=== PATIENT | female | born 1975 | race Caucasian/White ===

== ENCOUNTER 2018-06-13 06:06 | Inpatient (IN) | payer OTHER ==
[2018-06-13] VITALS (12 sets, daily range): BP systolic 96–130; BP diastolic 62–80
[~2018-06-13] VITALS: Ht 167.6 cm; Wt 83.9 kg
[2018-06-13] MEDS ORDERED: Zemuron 50mg/5ml Inj IV ONE (06:32)
[2018-06-13] MEDS ORDERED: EPINEPHrine 1mg/1ml Amp ONE (06:59)
[2018-06-13] MEDS ORDERED: Heparin 5000 units/ml inj ONE (06:59)
[2018-06-13] MEDS ORDERED: Labetalol 5mg/ml 20ml vial IV PRN (07:00)
[2018-06-13] MEDS ORDERED: Atropine Sulfate 0.4mg/ml inj IVP PRN (07:00)
[2018-06-13] MEDS ORDERED: Lidocaine 1% 10mg/ml/Epi 0.005mg/ml 30ml vial INJ ONE (07:00)
[2018-06-13] MEDS ORDERED: Meperidine 50mg/ml Inj(FOR RIGORS ONLY) IVP PRN (07:00)
[2018-06-13] MEDS ORDERED: Hydromorphone 0.5mg/0.5ml inj IVP PRN (07:00)
[2018-06-13] MEDS ORDERED: Midazolam 2mg/2ml Inj IVP PRN (07:00)
[2018-06-13] MEDS ORDERED: Acetaminophen (Non formulary) 100 ML IV ONE (07:00)
[2018-06-13] MEDS ORDERED: LORazepam Inj 2mg/ml 1ml IV PRN (07:00)
[2018-06-13] MEDS ORDERED: Thrombin 5000 units spray kit TOPIC ONE (07:00)
[2018-06-13] MEDS ORDERED: Ketorolac 30mg Inj IV PRN ×2 (07:00)
[2018-06-13] MEDS ORDERED: fentaNYL 100 mcg/2 mL IV PRN (07:00)
[2018-06-13] MEDS ORDERED: LR 1000ml 1,000 ML IVLG SCH (07:00)
[2018-06-13] MEDS ORDERED: HYDROcodone/Acetamin 7.5/325 tab ORAL PRN (07:00)
[2018-06-13] MEDS ORDERED: DiphenhydrAMINE 50mg/ml Inj IVP PRN (07:00)
[2018-06-13] MEDS ORDERED: Metoclopramide 10mg/2ml Inj IVP PRN (07:00)
[2018-06-13] MEDS ORDERED: Gelfoam Size TOPIC ONE (07:00)
[2018-06-13] MEDS ORDERED: Norco 5mg/325mg tab ORAL PRN (07:00)
[2018-06-13] MEDS ORDERED: oxyCODONE HCL/Acetaminophen 5/325mg ORAL PRN (07:00)
[2018-06-13] MEDS ORDERED: Thrombin 5000 units TOPIC ONE (07:00)
[2018-06-13] MEDS ORDERED: Ropivacaine 5mg/ml Vial 30ml INJ ONE (07:01)
[2018-06-13] MEDS ORDERED: Bacitracin 50000 Units Vial ONE (07:01)
[2018-06-13] MEDS ORDERED: Gelfoam Absorbable 1gm powder pkt TOPIC ONE (07:01)
[2018-06-13] MEDS ORDERED: Bupivacaine 0.5% Inj 30 ml vial INJ ONE ×2 (07:01→11:25)
[2018-06-13] MEDS ORDERED: Lidocaine 1% MPF 10mg/ml 5ml ONE (07:07)
[2018-06-13] MEDS ORDERED: Sodium Chloride 10ml vial INJ ONE (07:07)
[2018-06-13] MEDS ORDERED: Dexamethasone 4mg/ml vial ONE (07:07)
[2018-06-13] MEDS ORDERED: Lidocaine 1% Plain 30 ml INJ ONE (07:08)
--- NOTE | 2018-06-13 07:19 | Pre-Procedure Note/Attestation ---
Pre-Procedure Note/Attestation Complete Prior to Procedure Planned Procedure: bilateral Procedure Narrative: anterior and posterior decompressio fusion and instramentation Indications for Procedure Pre-Operative Diagnosis: herniater disk at L4/5 and L5/S1 with instibility Attestation I attest that I discussed the nature of the procedure; its benefits; risks and complications; and alternatives (and the risks and benefits of such alternatives ), prior to the procedure, with the patient (or the patient's legal factory representative). I attest that, if there was a reasonable possibility of needing a blood transfusion, the patient (or the patient's legal factory representative) was given the [facility] standardized written summary, pursuant to the Anup Adrianne Blood Safety Act ([place] Health and Safety Code # 1645, as amended). I attest that I re-evaluated the patient just prior to the surgery and that there has been no change in the patient's H&P, except as documented below: Madhu Mckeon MD Jun 13, 2018 07:19
--- NOTE | 2018-06-13 07:21 | Anethesia Preoperative Eval ---
Anesthesia Pre-op PMH/ROS General Date of Evaluation: Jun 13, 2018 Time of Evaluation: 07:41 Anesthesiologist: Rajan ASA Score: ASA 2 Mallampati Score Class I : Soft palate, uvula, fauces, pillars visible Class II: Soft palate, uvula, fauces visible Class III: Soft palate, base of uvula visible Class IV: Only hard plate visible Mallampati Classification: Class II Surgeon: Linda Diagnosis: Back Pain Surgical Procedure: ALIF/PLIF L4-5, L5-S1 Anesthesia History: none Social History: smoking Family History: no anesthesia problems Allergies: Coded Allergies: PENICILLINS (Verified Allergy, Severe, Rash, 06/13/18) Medications: see eMAR Past Medical History Cardiovascular: Reports: HTN Gastrointestinal/Genitourinary: Reports: GERD Neurologic/Psychiatric: Reports: depression/anxiety, other - Brain Aneurysm Other: obesity - BMI 32 PSxH Narrative: Brain Aneurysm Coiled Anesthesia Pre-op Phys. Exam Physician Exam Last Vital Signs Date Time Temp Pulse Resp B/P (MAP) Pulse Ox O2 Delivery O2 Flow Rate FiO2 06/13/18 06:55 Room Air 06/13/18 06:52 98.1 80 18 130/80 (97) 98 98.1 Constitutional: NAD Neurologic: CN 2-12 intact Cardiovascular: RRR Respiratory: CTA Gastrointestinal: S/NT/ND Airway Exam Mallampati Score: Class II MO: full ROM: limited Teeth: intact Anesthesia Pre-op A/P Labs Urine Test Test 06/13/18 06:15 Urine HCG, Qualitative Negative (NEGATIVE) Risk Assessment & Plan Assessment: ASA 2 Plan: GA, SED, GlideScope Go Status Change Before Surgery: No Pre-Antibiotics Dru Grams Ancef IV Given Within 1 Hr of Incision: Yes Time Given: 08:01 Jaden Tolentino MD Jun 13, 2018 07:21
[2018-06-13] MEDS ORDERED: BENAZEPRIL HCL10 MG ORAL (07:25)
--- NOTE | 2018-06-13 07:38 | Immediate Post-Op Evaluation ---
Immediate Post-Op Evalulation Immediate Post-Op Evalulation Procedure: ALIF/PLIF L4-5, L5-S1 Date of Evaluation: Jun 13, 2018 Time of Evaluation: 13:34 IV Fluids: 1300 LR Blood Products: 0 Estimated Blood Loss: 100 Urinary Output: 400 Blood Pressure Systolic: 107 Blood Pressure Diastolic: 62 Pulse Rate: 96 Respiratory Rate: 16 O2 Sat by Pulse Oximetry: 99 Temperature (Fahrenheit): 98.6 Pain Score (1-10): 3 Nausea: No Vomiting: No Complications 0 Patient Status: awake, reacts, patent, extubated, none Hydration Status: adequate Dru Grams Ancef IV Given Within 1 Hr of Incision: Yes Time Given: 08:01 Jaden Tolentino MD Jun 13, 2018 07:38
[2018-06-13] MEDS ORDERED: Sterile Water Irrig 1000ml IRRIG ONE (08:00)
[2018-06-13] MEDS ORDERED: Propofol 1,000mg/ 100ml btl IV ONE (08:00)
[2018-06-13] MEDS ORDERED: LR 1000ml ONE (08:00)
[2018-06-13] MEDS ORDERED: NS Irrig 1000ml ONE (08:00)
[2018-06-13] MEDS ORDERED: fentaNYL 100 mcg/2 mL IV ONE ×2 (08:51→12:57)
--- NOTE | 2018-06-13 15:29 | Diagnostic Imaging Report ---
Indication: Back pain, intraoperative images Technique: Intraoperative images Total fluoroscopy time 121 seconds. Total dose area product 1.28 mGym2 Number of images: 4 Comparison: none Findings: Intraoperative images demonstrate anterior fusion of hardware and disc spacers at what are presumably L4-5 and L5-S1, subsequent images demonstrating placement of posterior fusion hardware bridging L4 and S1. Impression: Intraoperative imaging, as described
[2018-06-13] MEDS: Vancomycin 1 GM in D5W 275 ML IVPB SCH (15:37)
[2018-06-13] MEDS: Clindamycin 600mg 50 ML IV SCH (17:16)
--- NOTE | 2018-06-13 19:15 | Operative Note - Dictated ---
DATE OF OPERATION: 06/13/2018 VASCULAR SURGEON: Jorje Zambrano M.D. SPINE SURGEON: Madhu Mckeon M.D. PREOPERATIVE DIAGNOSIS: Degenerative disc disease. POSTOPERATIVE DIAGNOSIS: Degenerative disc disease. PROCEDURE PERFORMED: 1. Anterior retroperitoneal exposure of L4-5 vertebral interspace. 2. Anterior retroperitoneal exposure of L5-S1 vertebral interspace. INDICATIONS: The patient is a very pleasant woman, who is seen in my office prior to surgery. She is scheduled for anterior lumbar spine surgery. She has no history of anterior spine surgery in the past. No history of deep venous thrombosis and no history of bleeding complications were described. She is made aware of the risks of surgery, the possibility of vascular injury, possible need for blood transfusion, and deep venous thrombosis were discussed with her prior to surgery. DESCRIPTION OF FINDINGS: A low vertical midline incision was used. A left retroperitoneal approach was used. There was no peritoneal or ureteral violation. There was no vascular injury. Exposure of L4-L5 was obtained above the iliac bifurcation and exposure of L5-S1 was obtained below the iliac bifurcation. Both were confirmed using fluoroscopy and on completion, the peritoneum and ureter were intact. The iliac vessels are intact. There are palpable femoral and pedal pulses. Pulse oximetry and neurologic monitoring are normal in the left foot throughout the case and blood loss was approximately 50 mL. DESCRIPTION OF PROCEDURE: The patient was taken to the operative room. General anesthesia was used. IV antibiotics were given. The patient's abdomen was prepped and draped. Appropriate time-out for procedure was taken. A low vertical midline incision was made infraumbilically. The anterior fascia was incised longitudinally midline. A plane was identified posterior to the left rectus abdominis and developed posterolaterally towards the patient's left. The retroperitoneal space was entered below the arcuate line and the peritoneum and ureter were mobilized towards the patient's right exposing the left common iliac artery and vein. Dissection was carried on undersurface of the left common iliac vein. The middle sacral vessels were ligated using bipolar electrocautery and divided and this allowed us to retract the soft tissue towards the patient's right exposing the anterior surface of L5 and S1. The Omni retractor was set in place. Fluoroscopy then used to confirm the appropriate level. Then instrumentation performed at L5-S1 dictated separately. On completion, retractor was then repositioned above the iliac bifurcation. Dissection was carried to the left side of the left common iliac artery and vein. Overlying lymphatics were ligated with vascular clips. The L4 segmental artery and vein were ligated with vascular clips and the iliolumbar vein was identified and encircled using a 2-0 silk tie and then ligated proximally and then ligated with vascular clips proximally and distally and then divided. This allowed us to then retract the left common iliac vessels towards the patient's right and expose the anterior surface of the L4-L5. The Omni retractors were once again set in place. Fluoroscopy was used to confirm the appropriate level. Then instrumentation was performed at L4-5 as dictated separately. On completion, retractors were gently removed. The peritoneum and ureter were intact. The iliac vessels are intact. The anterior fascia was then closed using #1 PDS in a running fashion. The skin and subcutaneous tissue were closed with 3-0 Vicryl and 4-0 Monocryl in a running subcuticular closure technique. Estimated blood loss 50 mL. Complications none. Jorje Zambrano M.D. DR: GURU JOB#: [id number] CC: Allen Whitt M.D. ; FAX#: [phone]
--- NOTE | 2018-06-13 19:24 | Cardiology Progress Note ---
Assessment/Plan Assessment/Plan [id number] NOP UNTIL PASS SHANA OR BM AMBUALTE ALLOW BY SPINE HOLD ANTIHYPERTENSIVE MEDS LABS IN AM HOME WHEN ABLE TO AMBULATE EAT AND HAVE BM Objective Last 24 Hour Vital Signs Date Time Temp Pulse Resp B/P (MAP) Pulse Ox O2 Delivery O2 Flow Rate FiO2 06/13/18 16:05 98.8 06/13/18 16:00 97.8 88 20 116/80 (92) 100 97.8 06/13/18 15:35 98.8 06/13/18 15:30 97.5 87 20 114/80 (91) 99 97.5 06/13/18 15:20 Nasal Cannula 3.0 06/13/18 15:13 98.8 06/13/18 14:39 98.8 93 16 112/71 98 Nasal Cannula 3 98.8 06/13/18 14:28 93 18 113/72 98 Nasal Cannula 3 06/13/18 14:12 91 18 114/76 98 Nasal Cannula 3 06/13/18 14:00 100 18 114/78 98 Nasal Cannula 3 06/13/18 13:45 95 18 110/65 98 Nasal Cannula 3 06/13/18 13:33 94 18 111/62 98 Nasal Cannula 3 06/13/18 13:28 96 18 106/67 98 Simple Mask 8 06/13/18 13:23 97 18 107/62 98 Simple Mask 8 06/13/18 13:23 209.5 96 16 99 06/13/18 06:55 Room Air 06/13/18 06:52 98.1 80 18 130/80 (97) 98 98.1 Intake and Output 06/12/18 06/13/18 19:00 07:00 # Voids 1 Laboratory Tests Test 06/13/18 06:15 Urine HCG, Qualitative Negative (NEGATIVE) Fabian Reid MD Jun 13, 2018 19:24
--- NOTE | 2018-06-13 22:45 | Operative Note - Dictated ---
DATE OF OPERATION: 06/13/2018 PREOPERATIVE DIAGNOSES: 1. L4-5 and L5-S1 herniated nucleus pulposus. 2. Spinal stenosis L4-5 and L5-S1. 3. Instability L4-5 and L5-S1. POSTOPERATIVE DIAGNOSES: 1. L4-5 and L5-S1 herniated nucleus pulposus. 2. Spinal stenosis L4-5 and L5-S1. 3. Instability L4-5 and L5-S1. The patient is status post anterior L4-5 and L5-S1 decompression, fusion, and instrumentation. PROCEDURES: 1. Posterior L4 to the sacrum bilateral segmental instrumentation using the system. 2. Posterior L4-5 and L5-S1 bilateral lateral fusion. 3. Use of local bone. 4. Intraoperative use of fluoroscopy. SURGEON: Madhu Mckeon M.D. PENSIONHOLDER INFORMATION CLERK: Dr. Wilver Ponce. ANESTHESIA: General with endotracheal intubation. DESCRIPTION OF PROCEDURE: Under general anesthesia with endotracheal intubation, the patient was placed in prone position on the operating room table. Back was prepped and draped in usual manner. The C-arm was pulled into position and the pedicles at L4-L5 and S1 were identified. Stab incisions were made and trocars were directed towards the pedicles, first at L4 and then at S1. This was done under fluoroscopic control. Jamshidi needles were then advanced into the pedicles under imaging. Once they pass the pedicle posterior cortex junction, the wires were then advanced. The dilators were then placed over the wires. Each wire was tested with spinal cord monitoring and they all were noted to be in good position. We then tacked over each wire and then at L4, 45 mm long screws were inserted. They were 6.5 outer diameter. At L5, the screws were inserted about 40 mm long and 7.5 mm . Once screws were fully inserted, we then advanced the rods percutaneously under the fascia and inserted them through the screw heads. Once the screw heads were engaged, locking nuts were applied and then appropriately torqued. The transverse processes of the sacral ala were decorticated. Local bone remained in place. Before we did this, the wounds were irrigated and then BMP was placed along the lateral fusion gutters bilaterally. Hemostasis was achieved. The wound was then closed in layers using #0 for fascia and 2-0 for subcuticular closure. Sterile dressings were applied. The patient was taken to recovery room and judged to be in stable condition and neurologically intact. Madhu Mckeon MD DR: SALMA JOB#: [id number] CC: Madhu Mckeon M.D.
[2018-06-14] VITALS: BP 113/67
[2018-06-14] MEDS: Clindamycin 600mg 50 ML IV SCH ×3 (00:16→12:27)
--- NOTE | 2018-06-14 00:45 | Consultation ---
DATE OF CONSULTATION: 06/13/2018 CARDIOLOGY CONSULTATION CONSULTING PHYSICIAN: Fabian Reid M.D. REFERRING PHYSICIAN: Madhu Mckeon M.D. REASON FOR REFERRAL: Postoperative care. HISTORY OF PRESENT ILLNESS: This is a young female, who has had accident and injured her lumbar disk and underwent surgery today by Dr. Mckeon. She is doing relatively well. She had really no chest pain. She does not have any shortness of breath although she feels her breathing is not quite as well as it usually is. She does not have any heart pounding or palpitations. She denies any nausea, vomiting, or dizziness. PAST MEDICAL HISTORY: Positive for history of systemic hypertension. She reportedly had an aneurysm repaired according to her chart although she denied any manageable medical problems to me. She did have coil placed in the aneurysm previously. SOCIAL HISTORY: She used to smoke until one year ago. Alcoholic beverages occasionally. No drug use. REVIEW OF SYSTEMS: GASTROINTESTINAL: She denies any nausea or vomiting. No bowel movements yet. GENITOURINARY: She has Tejada catheter. PULMONARY: Denies any coughing or wheezing. CONSTITUTIONAL: Negative. NEUROLOGIC: She initially had some normal motion of the legs but apparently that is resolved. PHYSICAL EXAMINATION: GENERAL: Shows to be young female, in no respiratory distress. NECK: Supple. No jugular venous distention. LUNGS: Appear to be clear to auscultation and percussion. CARDIAC: S1 is normal. S2 is normal. Regular rate and rhythm. ABDOMEN: Soft. Surgical dressing in place in the lower abdomen. Bowel sounds are hypoactive but present. EXTREMITIES: There is no edema. She has pneumatic compression stockings noted in the lower extremities bilaterally. She is able to move her toes without any significant issues. LABORATORY VALUES: None are available postop. Preop laboratories have been drawn although a chest x-ray shows no acute cardiac process. test was negative. EKG looks fairly unremarkable except early R-wave progression. Urinalysis was unremarkable. Her sugar was 93, creatinine 0.9, and potassium was 5.1. White count 6.5, hemoglobin 12.3, platelet count 352. Preoperative INR 0.96 and PTT of 28. ASSESSMENT/PLAN: 1. Lumbar disk disease status post surgery under Dr. Mckeon with decompression. 2. . This patient was seen in cardiac consultation. The patient's blood pressure appears to be relatively stable. We will hold off on giving her any blood pressure medication for the time being. She will be continued to be observed. She is NPO until she has bowel movements and then we will start her on a diet and advance as tolerated. DVT prophylaxis with the use of pneumatic compression stockings are in place. Antiemetic medication and pain management as needed, receiving vancomycin as per recommendations of Dr. Mckeon. Medically appears to be doing relatively well. I will follow the patient along. Fabian Reid M.D. DR: Nikolas JOB#: [id number] CC:
[2018-06-14 04:00] VITALS: BP 99/62
[2018-06-14] MEDS: Vancomycin 1 GM in D5W 275 ML IVPB SCH (04:16)
--- NOTE | 2018-06-14 06:35 | Brief Operative Note ---
Immediate Post Operative Note Operative Note Chief Complaint: back and leg pain Pre-op Diagnosis: herniater disk at L4/5 and L5/S1 with instibility Procedure: anterior and posterior decompression fusion and instramentation Post-op Diagnosis: same Post-op Diagnosis: same as pre-op Surgeon: cassi Chainstitch Sewing Machine Operator: Shelli Anesthesia: general Specimen: none Complications: none Condition: stable Fluids: 1000 cc Estimated Blood Loss: volume Implant(s) used?: Yes Madhu Mckeon MD Jun 14, 2018 06:35
--- NOTE | 2018-06-14 06:37 | Orthopedic Spine Progress Note ---
Ortho Spine - Progress Note Subjective Symptoms: c/o post-op back pain Objective Vital Signs: Last 24 Hour Vital Signs Date Time Temp Pulse Resp B/P (MAP) Pulse Ox O2 Delivery O2 Flow Rate FiO2 06/14/18 04:00 97.5 74 16 99/62 (74) 99 97.5 06/14/18 00:00 97.8 85 16 113/67 (82) 99 97.8 06/13/18 20:55 Nasal Cannula 3.0 06/13/18 20:00 97.8 83 16 96/63 (74) 99 97.8 06/13/18 16:05 98.8 06/13/18 16:00 97.8 88 20 116/80 (92) 100 97.8 06/13/18 15:35 98.8 06/13/18 15:30 97.5 87 20 114/80 (91) 99 97.5 06/13/18 15:20 Nasal Cannula 3.0 06/13/18 15:13 98.8 06/13/18 14:39 98.8 93 16 112/71 98 Nasal Cannula 3 98.8 06/13/18 14:28 93 18 113/72 98 Nasal Cannula 3 06/13/18 14:12 91 18 114/76 98 Nasal Cannula 3 06/13/18 14:00 100 18 114/78 98 Nasal Cannula 3 06/13/18 13:45 95 18 110/65 98 Nasal Cannula 3 06/13/18 13:33 94 18 111/62 98 Nasal Cannula 3 06/13/18 13:28 96 18 106/67 98 Simple Mask 8 06/13/18 13:23 97 18 107/62 98 Simple Mask 8 06/13/18 13:23 209.5 96 16 99 06/13/18 06:55 Room Air 06/13/18 06:52 98.1 80 18 130/80 (97) 98 98.1 I&O: Intake and Output 06/13/18 06/14/18 19:00 07:00 Intake Total 2375 ml 562.5 ml Output Total 850 ml 1300 ml Balance 1525 ml -737.5 ml Intake IV Total 2375 ml 562.5 ml Output Urine Total 750 ml 1300 ml Estimated Blood Loss 100 ml Wound: clean, dry, intact Drains: none Neuro Status: normal Assessment Post-op Diagnosis: same Procedure Performed: anterior and posterior decompression fusion and instramentation Plan Plan: PT, continue antibiotics, discharge plan Madhu Mckeon MD Jun 14, 2018 06:37
[2018-06-14 07:24] LABS: BASOPHILS % (AUTO) 0.6 % (0.0-2.0); EOSINOPHILS % (AUTO) 0.1 % (0.0-3.0); HEMATOCRIT 33.2 % (37.0-47.0); HEMOGLOBIN 11.1 G/DL (12.0-16.0); LYMPHOCYTES % (AUTO) 13.9 % (20.0-45.0); MEAN CORPUSCULAR VOLUME 93 FL (80-99); MONOCYTES % (AUTO) 10.5 % (1.0-10.0); NEUTROPHILS % (AUTO) 74.9 % (45.0-75.0); PLATELET COUNT 286 K/UL (150-450); RED BLOOD COUNT 3.56 M/UL (4.20-5.40); RED CELL DISTRIBUTION WIDTH 11.6 % (11.6-14.8); WHITE BLOOD COUNT 11.7 K/UL (4.8-10.8)
[2018-06-14 07:49] LABS: ANION GAP 5 mmol/L (5-15); BLOOD UREA NITROGEN 9 mg/dL (7-18); CALCIUM 7.8 MG/DL (8.5-10.1); CARBON DIOXIDE 29 MMOL/L (21-32); CHLORIDE 104 MMOL/L (98-107); CREATININE 0.8 MG/DL (0.55-1.30); SODIUM 138 MMOL/L (136-145)
[2018-06-14 08:00] VITALS: BP 102/62
--- NOTE | 2018-06-14 08:45 | Operative Note - Dictated ---
DATE OF OPERATION: 06/13/2018 NOTE: POOR AUDIO PREOPERATIVE DIAGNOSES: L4-L5 and L5-S1 herniated nucleus pulposus, L4-L5 and L5-S1 spinal stenosis, and L4-L5 and L5-S1 instability. POSTOPERATIVE DIAGNOSES: L4-L5 and L5-S1 herniated nucleus pulposus, L4-L5 and L5-S1 spinal stenosis, and L4-L5 and L5-S1 instability. FINDINGS: Large herniated nucleus pulposus at L4-L5 and L5-S1 compressing the neurologic structures. PROCEDURE: 1. Anterior L4-L5 and L5-S1 decompression, this included a complete diskectomy with decompression of the spinal canal and cauda equina and the rest of neurologic structures including the nerve roots. 2. Anterior interbody fusion, L4-L5 and L5-S1 using distraction arthrodesis technique. 3. Insertion of a PEEK cage at L4-L5 and L5-S1. 4. Anterior plating at L4-L5 and L5-S1. 5. Use of local bone. 6. Intraoperative use of fluoroscopy. 7. Use of demineralized bone matrix, BMP. SURGEON: Madhu Mckeon M.D. [place]. SENATOR: CO-SURGEON ON FUSION: Jorje Zambrano M.D., who assisted on the other procedures as well. COMPLICATIONS: None. ESTIMATED BLOOD LOSS: 30 mL. DESCRIPTION OF PROCEDURE: Under general anesthesia with endotracheal intubation, the patient was placed in supine position on operating table. Spinal cord monitoring leads were applied and spinal cord monitoring was performed. The abdomen was prepped and draped in the usual manner. Incision was made by Dr. Zambrano paramedially. Through this incision, he made a retroperitoneal approach to lumbosacral spine. We first approached the L5-S1 disc great vessels. I incised the anulus with a knife, the endplates with an endplate separator and then removed the disc with a variety of pituitary rongeurs. The disc was removed back to posterior longitudinal ligament. Wedge-shaped distractors were inserted to open up the disk. A 45 gram Kerrison was used to take down the posterior longitudinal ligament, decompress the spinal canal and neurologic structures. The endplates were further curetted back to bleeding bone. Local bone was harvested and placed out laterally. A 13 mm high 15-degrees each cage was selected and was packed with bone morphogenic protein and the cage was gently tapped into position under fluoroscopic control and direct vision. A plate was affixed to the anterior part of the cage. Two screws were then applied in the body and in the inferior endplate of L5 into the superior endplate of S1. The screws were then locked. Locking cap was placed on the top of that. We then moved lateral to the great vessels and approached the L4-L5 interspace. Once again, I incised the anulus with a knife, the endplates with an endplate separator and removed the disc with a variety of pituitary rongeurs. The disk was removed back to posterior longitudinal ligament. Posterior longitudinal ligament was taken down decompressing the spinal canal and neurologic structures as was done at L5-S1. Once the canal was decompressed, the endplates were further curetted back to bleeding bone. Local bone was harvested and packed out laterally and a 13 mm cage 10-degree angle was packed with bone morphogenic protein. The cage was gently inserted under fluoroscopic control and direct vision. Endplate was fixed to the anterior part of the cage. Two screws were then applied into L4, L5 and then the screws were appropriately locked and a locking plate was placed over it. Hemostasis was achieved. The wound was then closed in layers by Dr. Zambrano. Sterile dressings were applied and the patient was then prepared to flip to the prone position. Madhu Mckeon MD DR: JUSTIN JOB#: [id number] CC:
[2018-06-14 12:00] VITALS: BP 108/71
--- NOTE | 2018-06-14 12:55 | 48 Hour Post Anesthesia Eval ---
Post Anesthesia Evaluation Procedure: ALIF/PLIF L4-5, L5-S1 Date of Evaluation: Jun 14, 2018 Time of Evaluation: 12:53 Blood Pressure Systolic: 108 0: 72 Pulse Rate: 68 Respiratory Rate: 22 Temperature (Fahrenheit): 97.6 O2 Sat by Pulse Oximetry: 98 Airway: patent Nausea: No Vomiting: No Pain Intensity: 3 Hydration Status: adequate Cardiopulmonary Status: stable Mental Status/LOC: patient returned to baseline Follow-up Care/Observations: n/a Post-Anesthesia Complications: none Follow-up care needed: N/A Eric Hudson MD Jun 14, 2018 12:54
[2018-06-14 16:00] VITALS: BP 118/65
--- NOTE | 2018-06-14 18:31 | Cardiology Progress Note ---
Assessment/Plan Assessment/Plan 1. Lumbar disk disease status post surgery under Dr. Ye with decompression. 2. htn want to have diet but has passed min gas dr ye recommned suppository and coffee and clear in am if passes gas ambulate more dvt ppx pneumoatic stocking when in bed labs look good vitals are stable Subjective Cardiovascular: Denies: chest pain, lightheadedness Respiratory: Denies: shortness of breath Gastrointestinal/Abdominal: Denies: abdominal pain Genitourinary: Denies: burning Objective Last 24 Hour Vital Signs Date Time Temp Pulse Resp B/P (MAP) Pulse Ox O2 Delivery O2 Flow Rate FiO2 06/14/18 17:48 98.5 06/14/18 16:00 98.5 94 20 118/65 (82) 100 98.5 06/14/18 15:04 97.6 06/14/18 12:54 207.7 68 22 98 06/14/18 12:00 98.0 89 20 108/71 (83) 96 98.0 06/14/18 09:00 Nasal Cannula 3.0 06/14/18 08:55 97.5 06/14/18 08:00 98.0 92 18 102/62 (75) 100 98.0 06/14/18 04:00 97.5 74 16 99/62 (74) 99 97.5 06/14/18 00:00 97.8 85 16 113/67 (82) 99 97.8 06/13/18 20:55 Nasal Cannula 3.0 06/13/18 20:00 97.8 83 16 96/63 (74) 99 97.8 General Appearance: no apparent distress Neck: supple Cardiovascular: normal rate Respiratory/Chest: lungs clear Abdomen: soft, decreased bowel sounds Extremities: no swelling Intake and Output 06/13/18 06/14/18 19:00 07:00 Intake Total 2375 ml 562.5 ml Output Total 850 ml 1300 ml Balance 1525 ml -737.5 ml Intake IV Total 2375 ml 562.5 ml Output Urine Total 750 ml 1300 ml Estimated Blood Loss 100 ml Laboratory Tests Test 06/14/18 06:35 White Blood Count 11.7 K/UL (4.8-10.8) H Red Blood Count 3.56 M/UL (4.20-5.40) L Hemoglobin 11.1 G/DL (12.0-16.0) L Hematocrit 33.2 % (37.0-47.0) L Mean Corpuscular Volume 93 FL (80-99) Mean Corpuscular Hemoglobin 31.2 PG (27.0-31.0) H Mean Corpuscular Hemoglobin Concent 33.5 G/DL (32.0-36.0) Red Cell Distribution Width 11.6 % (11.6-14.8) Platelet Count 286 K/UL (150-450) Mean Platelet Volume 7.7 FL (6.5-10.1) Neutrophils (%) (Auto) 74.9 % (45.0-75.0) Lymphocytes (%) (Auto) 13.9 % (20.0-45.0) L Monocytes (%) (Auto) 10.5 % (1.0-10.0) H Eosinophils (%) (Auto) 0.1 % (0.0-3.0) Basophils (%) (Auto) 0.6 % (0.0-2.0) Sodium Level 138 MMOL/L (136-145) Potassium Level 4.0 MMOL/L (3.5-5.1) Chloride Level 104 MMOL/L (98-107) Carbon Dioxide Level 29 MMOL/L (21-32) Anion Gap 5 mmol/L (5-15) Blood Urea Nitrogen 9 mg/dL (7-18) Creatinine 0.8 MG/DL (0.55-1.30) Estimat Glomerular Filtration Rate > 60 mL/min (>60) Glucose Level 107 MG/DL (74-106) H Calcium Level 7.8 MG/DL (8.5-10.1) Fabian Moyer MD Jun 14, 2018 18:31
[2018-06-14 20:00] VITALS: BP 103/65
[2018-06-15] VITALS: BP 111/73
[2018-06-15 04:00] VITALS: BP 112/70
--- NOTE | 2018-06-15 07:34 | Orthopedic Progress Note ---
Orthopedic - Progress Note Subjective Symptoms: improved Objective Last 24 Hour Vital Signs Date Time Temp Pulse Resp B/P (MAP) Pulse Ox O2 Delivery O2 Flow Rate FiO2 06/15/18 04:36 99.0 06/15/18 04:06 99.0 06/15/18 04:00 99.0 97 20 112/70 (84) 99 99.0 06/15/18 00:00 99.0 103 20 111/73 (86) 96 99.0 06/14/18 22:18 98.1 06/14/18 21:00 Room Air 06/14/18 20:00 98.1 94 19 103/65 (78) 96 98.1 06/14/18 17:48 98.5 06/14/18 16:00 98.5 94 20 118/65 (82) 100 98.5 06/14/18 12:54 207.7 68 22 98 06/14/18 12:00 98.0 89 20 108/71 (83) 96 98.0 06/14/18 09:00 Nasal Cannula 3.0 06/14/18 08:55 97.5 06/14/18 08:00 98.0 92 18 102/62 (75) 100 98.0 Intake and Output 06/14/18 06/15/18 19:00 07:00 Intake Total 1500 ml 1125 ml Balance 1500 ml 1125 ml Intake IV Total 1500 ml 1125 ml # Voids 6 Wound: clean, dry, intact Drains: none Neuro Status: normal Assessment Post-op Diagnosis same Procedure Performed anterior and posterior decompression fusion and instramentation Plan Plan: continue antibiotics, discharge to home Madhu Mckeon MD Jun 15, 2018 07:34
[2018-06-15 08:03] VITALS: BP 134/80
[2018-06-15 11:41] VITALS: BP 111/70
[2018-06-15 16:03] VITALS: BP 123/74
--- NOTE | 2018-06-15 17:14 | Cardiology Progress Note ---
Assessment/Plan Assessment/Plan 1. Lumbar disk disease status post surgery under Dr. Ye with decompression. 2. htn had bm ate walked up the stairs labs look good vitals are stable no new labs home as ordered by dr ye d./w pt rhonda gleason Subjective Cardiovascular: Denies: chest pain, lightheadedness, palpitations Respiratory: Denies: shortness of breath Gastrointestinal/Abdominal: Denies: constipated Genitourinary: Denies: burning Objective Last 24 Hour Vital Signs Date Time Temp Pulse Resp B/P (MAP) Pulse Ox O2 Delivery O2 Flow Rate FiO2 06/15/18 16:04 98.0 06/15/18 16:03 98.0 93 20 123/74 (90) 96 98.0 06/15/18 15:34 98.9 06/15/18 11:41 98.9 91 20 111/70 (84) 93 98.9 06/15/18 10:20 99.2 06/15/18 09:00 Room Air 06/15/18 08:03 99.2 98 20 134/80 (98) 98 99.2 06/15/18 04:36 99.0 06/15/18 04:06 99.0 06/15/18 04:00 99.0 97 20 112/70 (84) 99 99.0 06/15/18 00:00 99.0 103 20 111/73 (86) 96 99.0 06/14/18 22:18 98.1 06/14/18 21:00 Room Air 06/14/18 20:00 98.1 94 19 103/65 (78) 96 98.1 06/14/18 17:48 98.5 General Appearance: no apparent distress Neck: supple Cardiovascular: regular rhythm Respiratory/Chest: lungs clear Abdomen: normal bowel sounds, non tender, soft Extremities: no swelling Intake and Output 06/14/18 06/15/18 19:00 07:00 Intake Total 1500 ml 1250 ml Balance 1500 ml 1250 ml IV Total 1500 ml 1250 ml # Voids 6 Microbiology Date/Time Source Procedure Growth Status 06/13/18 06:35 Nasal Nares MRSA Culture - Final NO METHICILLIN RESISTANT STAPH AUREUS... Complete Fabian Reid MD Jun 15, 2018 17:14
--- NOTE | 2018-06-18 14:21 | Discharge Summary ---
Discharge Summary Hospital Course Date of Admission Jun 13, 2018 at 06:06 Date of Discharge Jun 15, 2018 at 18:25 Admitting Diagnosis 1. L4-5 and L5-S1 herniated nucleus pulposus. 2. Spinal stenosis L4-5 and L5-S1. 3. Instability L4-5 and L5-S1. Reason for Hospitalization: elective surgery HPI Debby Acosta is a 43 year old female who was admitted on Jun 13, 2018 at 06:06 for Intervertebral Disc Displacement In Lumbar Region: 1. L4-5 and L5-S1 herniated nucleus pulposus. 2. Spinal stenosis L4-5 and L5-S1. 3. Instability L4-5 and L5-S1. Patient was admitted for elective surgery Consultations dr Reid Procedures s/p 06/13/[address] Mckeon( spine) 1. Anterior L4-L5 and L5-S1 decompression, this included a complete diskectomy with decompression of the spinal canal and cauda equina and the rest of neurologic structures including the nerve roots. 2. Anterior interbody fusion, L4-L5 and L5-S1 using distraction arthrodesis technique. 3. Insertion of a PEEK cage at L4-L5 and L5-S1. 4. Anterior plating at L4-L5 and L5-S1. 5. Use of local bone. 6. Intraoperative use of fluoroscopy. 7. Use of demineralized bone matrix, s/p 06/13/[address] Layton ( vascular approach) 1. Anterior retroperitoneal exposure of L4-5 vertebral interspace. 2. Anterior retroperitoneal exposure of L5-S1 vertebral interspace. Hospital Course s/p surgery course of recovery uneventful initially IV fluids status post perioperative antibiotics initially NPO until bowel function returned pain management addressed pain controlled neurovascular status intact surgical site clean dry and intact ambulated with physical therapy fall precautions SCD while in the bed and encouraged use of IS when bowel function returned , started slowly on diet as tolerated antiemetics as needed able to tolerate diet bowel regimen instituted voided freely antihypertensive medication on hold given lower range of normal blood rpessure discharge instruction provided follow-up with surgeon as outpatient , as advised by surgeon FINAL DIAGNOSES 1. L4-5 and L5-S1 herniated nucleus pulposus. 2. Spinal stenosis L4-5 and L5-S1. 3. Instability L4-5 and L5-S1. 4. s/p ALIF/PLIF L4-5, L5-S1 Discharge Medications Continued Medications: Benazepril Hcl* (Benazepril Hcl*) 10 Mg Tablet 20 MG ORAL DAILY, TAB (This prescription has been renewed) Discharge Condition Upon Discharge: stable Discharge Disposition Patient was discharged to Home (01) Discharge Instructions Discharge Instructions Special Instructions I have been assigned to complete a D/C Summary on this account. I was not involved in the patient management Charlene Husain NP Jun 18, 2018 14:21
== END 2018-06-15 18:25 | disposition home or self-care (01) | DRG 455 ==
LOC: SDSOVERFLO 06:06 → 3E 15:00
PROC: 0SG0071 Fusion of Lumbar Vertebral Joint with Autologous Tissue Substitute, Posterior Approach, Posterior Column, Open Approach (ICD-10-PCS; principal; 2018-06-13 07:30)
PROC: 0SG30A0 Fusion of Lumbosacral Joint with Interbody Fusion Device, Anterior Approach, Anterior Column, Open Approach (ICD-10-PCS; principal; 2018-06-13 07:30)
PROC: 3E0U0GB Introduction of Recombinant Bone Morphogenetic Protein into Joints, Open Approach (ICD-10-PCS; principal; 2018-06-13 07:30)
PROC: 0ST20ZZ Resection of Lumbar Vertebral Disc, Open Approach (ICD-10-PCS; principal; 2018-06-13 07:30)
PROC: 0SG3071 Fusion of Lumbosacral Joint with Autologous Tissue Substitute, Posterior Approach, Posterior Column, Open Approach (ICD-10-PCS; principal; 2018-06-13 07:30)
PROC: 0SG00A0 Fusion of Lumbar Vertebral Joint with Interbody Fusion Device, Anterior Approach, Anterior Column, Open Approach (ICD-10-PCS; principal; 2018-06-13 07:30)
PROC: 0ST40ZZ Resection of Lumbosacral Disc, Open Approach (ICD-10-PCS; principal; 2018-06-13 07:30)
DX: M51.16 Intervertebral disc disorders with radiculopathy, lumbar region (principal); M51.17 Intervertebral disc disorders with radiculopathy, lumbosacral region; M48.061 Spinal stenosis, lumbar region without neurogenic claudication; M48.07 Spinal stenosis, lumbosacral region; I10 Essential (primary) hypertension
CPT/HCPCS: 36415; 72020; 76001; 80048; 81025; 85025; 86850; 86900; 86901; 87081; 94003; 94150; J2405; S0077